=== PATIENT | female | born 1980 | race Caucasian/White ===

== ENCOUNTER → 2023-04-13 09:06 | Outpatient (CLI) | payer OTHER, SELFPAY ==
--- NOTE | 2023-04-13 | DI.MG.S_ITS ---
BILATERAL DIGITAL SCREENING MAMMOGRAM 3D/2D WITH CAD: 04/13/2023 CLINICAL: Baseline exam. Routine screening. No prior exams were available for comparison. Both breasts are heterogeneously dense, which may obscure small masses (category c / 51-75% glandular tissue). Current study was also evaluated with a Computer Aided Detection (CAD) system. There is a focal asymmetry in the right breast at 1 o'clock anterior depth. No other significant masses, calcifications, or other findings are seen in either breast. IMPRESSION: INCOMPLETE: NEEDS ADDITIONAL IMAGING EVALUATION The focal asymmetry in the right breast is indeterminate. Additional views with possible ultrasound are recommended. Based on the Tyrer Cuzick model (a risk assessment model) the patient's lifetime risk is 11.3% and her 10 year risk is 2.0%. According to the ACR, ACS, and NCCN guidelines, an annual breast MRI exam along with mammogram is recommended if the patient's lifetime risk is 20% or greater. This exam was interpreted at Station ID: [id number]. NOTE: For mammograms, a report in lay terms will be sent to the patient. Approximately 15% of breast malignancies will not be visualized mammographically. In the management of a palpable breast mass, a negative mammogram must not discourage biopsy of a clinically suspicious lesion. Electronically Signed By: Hever Moe M.D. lc/:04/13/2023 11:46:46 letter sent: Additional Imaging Needed ACR BI-RADS Category 0: Incomplete 3340F
== END ==
PROVIDERS: Family Provider Family Medicine; PCP Family Medicine; Referring Provider Family Medicine; Visit Provider Family Medicine
DX: Z12.31 Encounter for screening mammogram for malignant neoplasm of breast (principal)
CPT/HCPCS: 77063; 77067

== ENCOUNTER → 2023-04-16 10:07 | Outpatient (CLI) | payer OTHER, SELFPAY | PROVIDERS: Family Provider Family Medicine; PCP Family Medicine; Referring Provider Family Medicine; Visit Provider Family Medicine | DX: G56.00 Carpal tunnel syndrome, unspecified upper limb (principal) | CPT/HCPCS: 95885; 95886; 95912 ==

== ENCOUNTER → 2023-05-05 10:14 | Outpatient (CLI) | payer OTHER, SELFPAY ==
--- NOTE | 2023-05-05 | DI.MG.S_ITS ---
UNILATERAL RIGHT DIGITAL DIAGNOSTIC MAMMOGRAM 3D/2D WITH ADDITIONAL VIEWS: 05/05/2023 CLINICAL: Additional evaluation requested from prior study. Comparison is made to exam dated: 04/13/2023 mammogram - [facility]. The right breast is heterogeneously dense, which may obscure small masses (category c / 51-75% glandular tissue). The focal asymmetry in the right breast at 1 o'clock anterior depth is no longer seen and is consistent with fibroglandular tissue. This is not seen in additional views. No other significant masses or calcifications are seen in the breast. IMPRESSION: BENIGN There is no mammographic evidence of malignancy. Return to annual mammogram screening schedule is recommended. Based on the Tyrer Cuzick model (a risk assessment model) the patient's lifetime risk is 12.0% and her 10 year risk is 2.2%. According to the ACR, ACS, and NCCN guidelines, an annual breast MRI exam along with mammogram is recommended if the patient's lifetime risk is 20% or greater. This exam was interpreted at Station ID: [id number]. NOTE: For mammograms, a report in lay terms will be sent to the patient. Approximately 15% of breast malignancies will not be visualized mammographically. In the management of a palpable breast mass, a negative mammogram must not discourage biopsy of a clinically suspicious lesion. Electronically Signed By: Rui Rea M.D. acr/:05/05/2023 11:06:47 letter sent: Normal Exam ACR BI-RADS Category 2: Benign Finding(s) 3342F
== END ==
PROVIDERS: Family Provider Family Medicine; PCP Family Medicine; Referring Provider Family Medicine; Visit Provider Family Medicine
DX: R92.8 Other abnormal and inconclusive findings on diagnostic imaging of breast (principal)
CPT/HCPCS: 77065; G0279

== ENCOUNTER 2023-08-11 12:48 | Day surgery (SDC) | payer OTHER, SELFPAY ==
--- NOTE | 2023-08-11 | PATH_ITS ---
[facility] Accession Number: [id number] No. of containers..01 Tissue . 01 Material submitted: . rectum - RECTAL POLYP X 7 . 01 Diagnosis: COLON, RECTUM, POLYPS X7, BIOPSIES: - HYPERPLASTIC POLYPS (6 POLYPS), AND ONE BENIGN COLONIC MUCOSA. TXN 08/20/2023 1022 Local . 01 Electronically signed: . Tamaren Mcdermott MD, Pathologist NPI- [id number] . 01 Gross description: . RECTAL POLYP X 7: Received in formalin are multiple fragment(s) of ballesteros, soft tissue measuring 0.1 x 0.1 x 0.1 cm to 0.8 x 0.5 x 0.3 cm submitted entirely in 1 cassette(s) /BOWEN 08/12/2023 1839 Local . 01 Pathologist provided ICD-10: Z12.11 . 01 CPT . 755410 Specimen Comment: A courtesy copy of this report has been sent to [phone] Performed at: 01 [facility] [address] [place] [address], [place], [place] [id number] MD Reynold Herbert MD Phone: [phone]
[2023-08-11 13:10] VITALS: BMI 34.0
[2023-08-11 13:16] VITALS: BP 111/71; PULSE 89; RESP 18; TEMP 37.4; O2SAT 97
[2023-08-11] MEDS: LACTATED RINGERS 1,000 ML 42 ML IV (13:26)
--- NOTE | 2023-08-11 13:41 | P.HP_ITS ---
History of Present Illness History of Present Illness Date Patient Seen: 08/11/23 Time Patient Seen: 13:41 Chief complaint: [facility] [place] Narrative: 43-year-old woman here for screening colonoscopy. No previous colonoscopy. No family history of intestinal malignancy. No abdominal concerns today including abdominal pain, unintentional weight loss, blood per rectum, anorexia. [facility] Surgical History Previous section Social History household members: children Smoking Status: Former smoker alcohol intake: current Meds Home Medications and Allergies Home Medications Medication Instructions Recorded Confirmed Type sodium,potassium,mag sulfates 17.5 See Rx Instructions PO .COMPLEX 04/23/23 08/11/23 Rx gram-3.13 gram-1.6 gram oral soln #354 mL (Suprep Bowel Prep Kit) Allergies Allergy/AdvReac Type Severity Reaction Status Date / Time Penicillins Allergy Unknown Hives-as a Verified 08/11/23 13:08 child erythromycin base AdvReac Unknown Vomiting Verified 08/11/23 13:08 Exam Vital Signs (past 8 hours): - 08/11/23 13:16 Temperature 99.3 F Pulse Rate 89 Respiratory Rate 18 Blood Pressure 111/71 Pulse Oximetry 97 Oxygen Delivery Method Room Air Oxygen Delivery Method Room Air Narrative Exam Narrative: General adult woman alert oriented no acute distress Chest nonlabored respiration Extremities warm well perfused Assessment & Plan Assessment & Plan narrative: The patient requires colorectal screening and colonoscopy is recommended. Technical details were discussed. Risks, benefits, alternatives explained. Risks including but not limited to myocardial infarction, aspiration, bleeding, pain, missed lesion, incomplete examination, need for further radiographic studies, colonic perforation, and need for major abdominal surgery were discussed. All questions were answered to their satisfaction, and they are in agreement with this plan.
[2023-08-11 14:21] VITALS: BP 134/81; PULSE 96; RESP 18; TEMP 36.4; O2SAT 95
[2023-08-11 14:26] VITALS: BP 126/76; PULSE 85; RESP 22; O2SAT 95
[2023-08-11 14:30] VITALS: BP 122/67; PULSE 88; RESP 16; TEMP 36.2; O2SAT 96
--- NOTE | 2023-08-11 14:34 | P.OP.COLON_ITS ---
Operative Date/Time/Diagnoses Date of procedure: 08/11/23 Time of procedure: 14:34 Pre-op diagnosis: Colorectal screening Post-op diagnosis: other (Colonic polyps x7) Procedure & Clinicians Study performed: Colonoscopy and polypectomy Same procedure as scheduled: Yes Indications: Colorectal screening Surgeon: Ezra Hdz Procedure Notes Procedure in detail: The history and physical was performed/updated and the patient is ASA class is 2. The procedure was discussed in detail with the patient. Potential risks complications including infection, bleeding, missed diagnosis, perforation, need for surgery, and were explained. Their questions were answered and informed consent was obtained. Patient was brought to the procedure room and placed standard monitoring equipment. The patient's vital signs were monitored continuously throughout the entire procedure. Prior to starting time-out was performed. The patient was placed in the left lateral recumbent position. Procedural sedation was administered by anesthesia. Examination began with a thorough inspection of the perianal area there was no evidence of fissures, fistulae, external hemorrhoids or cutaneous malignancy. The colonoscopy scope was then placed into the anal canal and was advanced to the cecum, which was identified by the ileocecal valve, the appendiceal orifice and the confluence of the taenia. The scope was then slowly withdrawn examining colon thoroughly in all directions, irrigating it of any residual stool. The scope was retroflexed within the rectum The patient tolerated the procedure well. They will be discharged once criteria are met. The prep was of good/excellent quality. The withdrawl time was 7 minutes. FINDINGS * Rectum- Numerous polyps within the rectum. Approximately 7 polyps within the rectum were removed combination biopsy forceps and cold snare. They ranged in size from 3 to 8 mm in size. Specimen(s): other (Rectal polyps) Impression: polyps x7 Post-procedure Plan for aftercare: Follow-up is dependent on pathology findings Disposition: same day surgery
[2023-08-11 14:35] VITALS: BP 122/77; PULSE 82; RESP 18; TEMP 36.4; O2SAT 97
== END 2023-08-11 14:49 | disposition home or self-care (01) ==
PROVIDERS: Family Provider Family Medicine; PCP Family Medicine; Referring Provider Surgery; Visit Provider Surgery
PROC: 0DJD8ZZ Inspection of Lower Intestinal Tract, Via Natural or Artificial Opening Endoscopic (ICD-10-PCS; CPT 45378; principal; 2023-08-11 14:00)
DX: Z12.11 Encounter for screening for malignant neoplasm of colon (principal); K21.9 Gastro-esophageal reflux disease without esophagitis
CPT/HCPCS: 45385; 45380

== ENCOUNTER 2024-09-02 20:14 | Emergency (ER) | payer OTHER, SELFPAY ==
[2024-09-02 20:18] VITALS: BP 110/79; PULSE 83; RESP 18; TEMP 36.8; O2SAT 99; BMI 37.2
--- NOTE | 2024-09-02 20:52 | ED.EXTPRO ---
HPI - Extremity Problem General Chief complaint: Extremity Problem,Nontraumatic Stated complaint: Hard Knot on L Leg, Swelling, Px Time Seen by Provider: 09/02/24 20:34 Source: patient Mode of arrival: Ambulatory History of Present Illness HPI Narrative: Patient is here for evaluation of a painful lump and redness on the front portion of her left leg just distal to her knee. No trauma to this area. She started noticing the discomfort earlier today. He was never had an abscess in the past. No fevers. Has not tried anything for the symptoms prior to arrival. Related Data Previous Rx's Medication Instructions Recorded cephalexin 500 mg capsule 500 mg PO QID 7 days #28 caps 09/02/24 Allergies Allergy/AdvReac Type Severity Reaction Status Date / Time Penicillins Allergy Unknown Hives-as a Verified 08/11/23 13:08 child erythromycin base AdvReac Unknown Vomiting Verified 08/11/23 13:08 Review of Systems Review of Systems Narrative: See HPI Patient History Surgical History Previous section Social History household members: children Smoking Status: Former smoker alcohol intake: current Smoking Status: Former smoker alcohol intake frequency: holidays/special occasions only Substance Use Type: does not use Exam Initial Vital Signs Initial Vital Signs: Vital Signs Temperature 98.3 F 09/02/24 20:18 Pulse Rate 83 09/02/24 20:18 Respiratory Rate 18 09/02/24 20:18 Blood Pressure 110/79 09/02/24 20:18 Pulse Oximetry 99 09/02/24 20:18 Oxygen Delivery Method Room Air 09/02/24 20:18 [facility] Head: normal to inspection and normocephalic Skin Other: Patient has a 2 cm x 1 cm palpable area of hardness on the proximal 1/3 of the anterior tibia. It is somewhat tender to palpation. There is a small amount of erythema around this area. No drainage. No pustules. No vesicles. Course Orders Ordered: Discontinued Medications Cephalexin HCl (Cephalexin 250 Mg Capsule) 500 mg PO NOW ONE Stop: 09/02/24 20:53 Last Admin: 09/02/24 20:57 Dose: 500 mg Documented By: DANNI Vital Signs Vital signs: Vital Signs - 8 hr 09/02/24 20:18 Temperature 98.3 F Pulse Rate 83 Respiratory Rate 18 Blood Pressure 110/79 Pulse Oximetry 99 Oxygen Delivery Method Room Air MDM - Extremity (Nontraumatic) MDM Narrative Medical decision making narrative: Bedside ultrasound shows no foreign body. No drainable abscess. I do suspect induration in this area and with the overlying redness concern for cellulitis. No fevers. Plan will be to place her on antibiotics. Given 1st dose here in the emergency department and will send a prescription to the pharmacy of her choice. She was given return precautions and follow-up instructions. She expressed understanding and agreement plan. Discharge Plan Departure Patient Disposition: Home Clinical Impression: Cellulitis Instructions: DI for Cellulitis -- Adult Activity Restrictions/Additional Instructions: Take the antibiotics as directed. Putting some ice over the area maybe helpful as well. Return to the emergency department for new or worsening symptoms. Prescriptions: New cephalexin 500 mg capsule 500 mg PO QID 7 Days Qty: 28 0RF Referrals: Neva Kaur MD [Primary Care Provider] - Stand Alone Forms: Patient Portal/API/Survey
[2024-09-02] MEDS: cephALEXin 250 MG CAPSULE 500 MG PO (20:57)
== END 2024-09-02 21:02 | disposition home or self-care (01) ==
PROVIDERS: Emergency Provider Emergency Medicine; Family Provider Family Medicine; PCP Family Medicine
DX: L03.116 Cellulitis of left lower limb (principal)
CPT/HCPCS: 99283

== ENCOUNTER → 2024-10-31 07:44 | Outpatient (CLI) | payer OTHER, SELFPAY ==
--- NOTE | 2024-10-31 07:45 | DI.MG.S_ITS ---
BILATERAL DIGITAL SCREENING MAMMOGRAM 3D/2D WITH CAD: 10/31/2024 CLINICAL: Routine screening. Comparison is made to exams dated: 05/05/2023 mammogram and 04/13/2023 mammogram - [facility]. The breasts are heterogeneously dense, which may obscure small masses (category c / 51-75% glandular tissue). Current study was also evaluated with a Computer Aided Detection (CAD) system. No significant masses, calcifications, or other findings are seen in either breast. There has been no significant interval change. IMPRESSION: NEGATIVE There is no mammographic evidence of malignancy. A 1 year screening mammogram is recommended. Based on the Tyrer Cuzick model (a risk assessment model) the patient's lifetime risk is 11.9% and her 10 year risk is 2.3%. According to the ACR, ACS, and NCCN guidelines, an annual breast MRI exam along with mammogram is recommended if the patient's lifetime risk is 20% or greater. This exam was interpreted at Station ID: [id number]. NOTE: For mammograms, a report in lay terms will be sent to the patient. Approximately 15% of breast malignancies will not be visualized mammographically. In the management of a palpable breast mass, a negative mammogram must not discourage biopsy of a clinically suspicious lesion. Electronically Signed By: Martínez mcfadden/zackary:10/31/2024 16:30:08 letter sent: Normal Exam ACR BI-RADS Category 1: Negative
== END ==
LOC: MAMMO 07:45
PROVIDERS: Family Provider Family Medicine; PCP Family Medicine; Referring Provider Family Medicine; Visit Provider Family Medicine
DX: Z12.31 Encounter for screening mammogram for malignant neoplasm of breast (principal); R92.333 Mammographic heterogeneous density, bilateral breasts
CPT/HCPCS: 77063; 77067

== ENCOUNTER → 2024-11-09 08:40 | Outpatient (CLI) | payer OTHER, SELFPAY ==
--- NOTE | 2024-11-09 08:41 | DI.US.S_ITS ---
PROCEDURE: US EXTREMITY NONVASC LOWER LT INDICATIONS: LUMP LEFT UPPER LOWER LEG TECHNIQUE: Real-time scanning was performed of the left upper lower leg, with image documentation. COMPARISON: None. FINDINGS: Sonographic evaluation of the area of concern does not reveal an underlying mass or fluid collection. IMPRESSION: No sonographic correlate for the patient's palpable finding. Dictated by: Peng Pacheco M.D. on 11/09/2024 at 11:32 Approved by: Peng Pacheco M.D. on 11/09/2024 at 11:35
== END ==
LOC: US 08:40
PROVIDERS: Family Provider Family Medicine; PCP Family Medicine; Referring Provider Family Medicine; Visit Provider Family Medicine
DX: R22.42 Localized swelling, mass and lump, left lower limb (principal)
CPT/HCPCS: 76882